=== PATIENT | female | born 1935 | race Caucasian/White ===

== ENCOUNTER → 2016-12-22 | Outpatient (CLI) | payer MEDICARE ==
[~2016-12-22] MED LIST: ASP81CT PO; METO25TA2 PO
== END ==
LOC: RAD 08:32
PROVIDERS: ATTEND Internal Medicine
DX: Z12.31 Encounter for screening mammogram for malignant neoplasm of breast (principal)
CPT/HCPCS: 77067

== ENCOUNTER → 2017-12-28 | Outpatient (CLI) | payer MEDICARE ==
--- NOTE | 2017-12-28 08:35 | Diagnostic Imaging Report ---
Indication: Routine screening. Comparison is made with prior mammogram from 01/09/2017 and 12/22/2015. 2-D and 3-D bilateral screening mammography was performed with CAD. Both breasts are heterogeneously dense, limiting the sensitivity of mammography. The parenchymal pattern is stable. No mass or malignant-appearing microcalcifications are seen. The axillae are unremarkable. Impression: BI-RADS category 1. No mammographic features suspicious for malignancy are identified. Dictated by: Dictated on workstation # [id number]
== END ==
LOC: RAD 07:47
PROVIDERS: ATTEND Internal Medicine
DX: Z12.31 Encounter for screening mammogram for malignant neoplasm of breast (principal)
CPT/HCPCS: 77067

== ENCOUNTER → 2020-01-03 | Outpatient (CLI) | payer MEDICARE | LOC: CARD 14:47 | PROVIDERS: ATTEND Internal Medicine | DX: I10 Essential (primary) hypertension (principal) | CPT/HCPCS: 93005 ==

== ENCOUNTER 2022-05-22 10:07 | Emergency (ER) | payer MEDICARE ==
[~2022-05-22] VITALS: Ht 157.5 cm; Wt 68.0 kg
--- NOTE | 2022-05-22 10:41 | ED General ---
General Chief Complaint: Laceration Stated Complaint: LIP LAC Nursing Triage Note: PT AMBULATE TO ROOM FT3 WITHOUT DIFFICULTY WITH C/O LAC TO INSIDE RIGHT UPPER LIP LAST NIGHT. PT REPORTS HER DOG HIT HER IN THE LIP. (BALTA TRINIDAD) History of Present Illness Date Seen by Provider: May 22, 2022 Time Seen by Provider: 10:28 Initial Comments 86 yo female presents to ED with chief complaint of Right upper lip and gingiva laceration since last night. Pt reports that around 2100 last night she was laying with dog and the dogs head hit patients lip. She reports that lip has been bleeding since last night. Has associated swelling and tenderness to touch. Denies any pain, loss of sensation, LOC or SAAVEDRA. Pt is on Aspirin 81mg but does not take any anticoagulation medication. Pt has been using gauze to help with bleeding. Pt not up to date on tetanus. No other complaints. Timing/Duration: 12-24 Hours (BALTA TRINIDAD) Allergies and Home Medications Allergies Coded Allergies: No Known Drug Allergies (Unverified , 03/18/13) Patient Home Medication List Home Medication List Reviewed: Yes (BALTA TRINIDAD) Aspirin (Baby Aspirin Chewable Tablet) 81 Mg Chew, 81 MG PO DAILY, (Reported) Entered as Reported by: LOWELL NUR on 03/18/132200 Metoprolol Tartrate (Metoprolol Tartrate 25 Mg) 25 Mg Tablet, 1 TAB PO DAILY, (Reported) Entered as Reported by: LOWELL NUR on 03/18/132200 Review of Systems Review of Systems Constitutional: no symptoms reported EENTM: no symptoms reported Respiratory: no symptoms reported Cardiovascular: no symptoms reported Gastrointestinal: no symptoms reported Genitourinary: no symptoms reported Musculoskeletal: no symptoms reported Skin: other (R upper lip and gingiva laceration with swelling) Psychiatric/Neurological: No Symptoms Reported Hematologic/Lymphatic: No Symptoms Reported Immunological/Allergic: no symptoms reported (BALTA TRINIDAD) Past Dkgxrmn-Gjdwuj-Ieqzsr Hx Patient Social History Tobacco Use?: No Smoking Status: Never a Smoker Smokeless Tobacco Frequency: Never a User Use of E-Cig and/or Vaping dev: No Substance use?: No Alcohol Use?: No Pt feels they are or have been: No (BALTA TRINIDAD) Immunizations Up To Date COVID19 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 oz. 54.933095pp; 27.00 BMI Method: General Appearance: No Apparent Distress, WD/WN HEENT: PERRL/EOMI, TMs Normal, Normal ENT Inspection, Pharynx Normal Respiratory: Chest Non Tender, Lungs Clear, Normal Breath Sounds, No Accessory Muscle Use, No Respiratory Distress Cardiovascular: Regular Rate, Rhythm, No Edema, No Gallop, No JVD, No Murmur, Normal Peripheral Pulses Skin: Other (R upper lip and gingiva laceration with swelling. Gingiva actively bleeding ) (BALTA TRINIDAD) Progress/Results/Core Measures Suspected Sepsis SIRS Temperature: Pulse: 106 Respiratory Rate: 17 Blood Pressure 139 /62 Mean: 87 (BALTA TRINIDAD) Results/Orders My Orders Orders - JULIA VAIL MD Lidocaine/Epi 2% 1:100,000 (Xylocaine/Ep (05/22/22 11:15) Tranexamic Acid Injection (Cyklokapron I (05/22/22 11:15) Dipht,Pertuss(Acell),Tet Adult (Boostrix (05/22/22 11:15) Amoxicillin Capsule (Polymox Capsule) (05/22/22 11:06) (JULIA VAIL MD) Medications Given in ED Current Medications Medications Dose Ordered Sig/Prosper Route Start Time Stop Time Status Last Admin Dose Admin Diphtheria/ Tetanus/Acell Pertussis 0.5 ml ONCE ONCE IM 05/22/22 11:15 05/22/22 11:16 DC 05/22/22 11:39 0.5 ML Tranexamic Acid ONCE ONCE NA 05/22/22 11:15 05/22/22 11:16 DC 05/22/22 11:40 1,000 MG (JULIA VAIL MD) Vital Signs/I&O 05/22/22 10:20 Temp 36.8 Pulse 106 Resp 17 B/P (MAP) 139/62 (87) O2 Delivery Room Air (JULIA VAIL MD) Vital Signs/I&O Capillary Refill : Less Than 3 Seconds (BALTA TRINIDAD) Blood Pressure Mean: 87 Departure Impression Primary Impression: Lip laceration Qualified Codes: S01.511A - Laceration without foreign body of lip, initial encounter Disposition: 01 HOME, SELF-CARE Departure-Patient Inst. Decision time for Depature: 13:14 (JULIA VAIL MD) Referrals: MUKESH MARQUES MD (PCP/Family) Primary Care Physician Patient Instructions: Minor Head Injury, Adult ED Add. Discharge Instructions: Replace gauze pads as needed to absorb the bleeding. Apply direct pressure over the outside of your lip to help reduce bleeding. Keep your head elevated as much as possible. If you are still bleeding 24 hours after the injury, return to care. If symptoms are worsening or you develop new symptoms such as increasing bleeding, fever, redness of the skin, or puslike drainage, return to the ER. [facility] pharmacy is open until 6 PM today. You should also contact your dentist next week to have a dental exam to ensure you have no hidden dental injuries. Call with questions or concerns. Complete the antibiotics as prescribed to prevent infection. All discharge instructions reviewed with patient and/or family. Voiced understanding. Scripts Amoxicillin (Amoxicillin) 500 Mg Capsule 500 MG PO TID, #15 CAP 0 Refills Prov: JULIA VAIL MD 05/22/22 BALTA TRINIDAD May 22, 2022 10:41 JULIA VAIL MD May 22, 2022 13:18
[2022-05-22] MEDS ORDERED: morphine INJ 10 MG/ML 1ML (SYR OR VIAL) IVP STA (11:05)
[2022-05-22] MEDS ORDERED: AMOXICILLIN 500 MG (POLYMOX) CAP PO STA (11:06)
[2022-05-22] MEDS ORDERED: TETANUS,DIPTH,PERTUSS P/F (BOOSTRIX) 0.5 ML VIAL IM ONE (11:15)
[2022-05-22] MEDS ORDERED: TRANEXAMIC ACID 100 MG/ML 10 ML INJECTION ONE (11:15)
[2022-05-22] MEDS ORDERED: LIDOCAINE/EPI 2% 1:100,00 (XYLOCAINE) 20 ML VIAL INJ ONE (11:15)
[2022-05-22] MEDS ORDERED: AMOX500C2 PO (13:18)
[2022-05-22 13:32] VITALS: BP 147/89
== END 2022-05-22 13:32 | disposition home or self-care (01) ==
LOC: EDUNIT# 10:07 → ER 10:09
DX: S01.511A Laceration without foreign body of lip, initial encounter (principal); Z23 Encounter for immunization; W54.1XXA Struck by dog, initial encounter
CPT/HCPCS: 90471; 90715; 99281